=== PATIENT | female | born 1975 | race Caucasian/White ===

== ENCOUNTER 2024-02-12 12:11 | Emergency (ER) | payer BC ==
[2024-02-12] MEDS: metroNIDAZOLE 500 MG Tab PO ONE (13:10)
[2024-02-12] MEDS: Amoxicillin 500 MG Cap PO ONE (13:11)
[2024-02-12] MEDS: Take Home: metroNIDAZOLE 500 MG Tab, 6 Tab Pack PO ONE (13:13)
[2024-02-12] MEDS: Take Home: Amoxicillin 500 MG, 6 Cap Pack PO ONE (13:13)
== END 2024-02-12 13:30 | disposition home or self-care (01) ==
LOC: LL.ED 12:11
DX: S02.5XXB Fracture of tooth (traumatic), initial encounter for open fracture (principal); K04.7 Periapical abscess without sinus; Z79.899 Other long term (current) drug therapy; X58.XXXA Exposure to other specified factors, initial encounter
CPT/HCPCS: 99282; A9270

== ENCOUNTER 2024-06-27 18:06 | Emergency (ER) | payer BC ==
[2024-06-27] MEDS: Ondansetron 4 MG/2 ML SDV IVPUSH ONE (18:17)
[2024-06-27] MEDS: Morphine 2 MG/ML SYRINGE IVPUSH ONE ×2 (18:21→18:29)
[2024-06-27] MEDS: Morphine 2 MG/ML SYRINGE ONE (18:22)
[2024-06-27] MEDS: Ondansetron 4 MG/2 ML SDV ONE (18:22)
[2024-06-27 18:26] LABS: BASOPHILS ABSOLUTE AUTO 0.02 K/uL (0.00-0.20); BASOPHILS PERCENT AUTO 0.1 % (0.0-2.0); EOSINOPHILS ABSOLUTE AUTO 0.03 K/uL (0.00-0.50); EOSINOPHILS PERCENT AUTO 0.2 % (0.0-5.0); HEMATOCRIT 37.5 % (34.0-46.0); HEMOGLOBIN 11.5 g/dL (11.7-15.5); IMMATURE GRAN ABSOLUTE AUTO 0.03 10^3/uL (0.00-0.50); IMMATURE GRAN PERCENT AUTO 0.2 % (0.0-5.0); LYMPHOCYTES ABSOLUTE AUTO 1.61 K/uL (0.50-3.50); LYMPHOCYTES PERCENT AUTO 9.7 % (10.0-50.0); MEAN CORPUSCULAR HEMOGLOBIN 20.9 pg (28.2-33.3); MEAN CORPUSCULAR HGB CONC 30.7 g/dL (31.7-36.0); MEAN CORPUSCULAR VOLUME 68.2 fL (84.0-98.0); MONOCYTES ABSOLUTE AUTO 0.89 K/uL (0.00-1.00); MONOCYTES PERCENT AUTO 5.3 % (2.0-14.0); NEUTROPHILS ABSOLUTE AUTO 14.09 K/uL (1.40-7.00); NEUTROPHILS PERCENT AUTO 84.5 % (45.0-80.0); PLATELET COUNT,PLT 585 K/uL (150-350); RED CELL DISTRIBUTION WIDTH 19.6 % (11.2-14.1); WHITE BLOOD CELL COUNT,WBC 16.7 K/uL (4.0-10.2)
[2024-06-27] MEDS ORDERED: Naloxone 0.4 MG/ML SDV IVPUSH PRN (18:28)
[2024-06-27 18:41] LABS: ALANINE AMINOTRANSFERASE,ALT 157 U/L (12-78); ALBUMIN 3.5 g/dL (3.4-5.0); ALKALINE PHOSPHATASE 237 IU/L (46-116); AMYLASE 23 U/L (25-115); ANION GAP 9.8 meq/L (7-15); ASPARTATE AMNIOTRANSFERASE,AST 131 U/L (15-37); BILIRUBIN TOTAL 0.5 mg/dL (0.2-1.0); BLOOD UREA NITROGEN,BUN 7 mg/dL (7-18); CALCIUM 9.5 mg/dL (8.5-10.1); CARBON DIOXIDE,CO2 27.2 mmol/L (21.0-32.0); CHLORIDE,CL 99 mmol/L (98-107); CREATININE 0.63 mg/dL (0.51-1.17); GLUCOSE RANDOM 143 mg/dL (70-99); PROTEIN TOTAL,TP 7.9 g/dL (6.4-8.2); SODIUM,NA 136 mmol/L (136-145)
[2024-06-27 18:42] LABS: ESTIMATED GFR 108 mL/min (>=60)
[2024-06-27] MEDS: Morphine 4 MG/ML Syringe IVPUSH ONE (18:46)
[2024-06-27] MEDS: Iopamidol 612 MG/ML 100 ML Bottle ONE (19:00)
[2024-06-27] MEDS: HYDROmorphone 0.5 MG/0.5 ML Syringe IVPUSH ONE (19:56)
== END 2024-06-27 20:20 ==
LOC: LL.ED 18:06
DX: K91.30 Postprocedural intestinal obstruction, unspecified as to partial versus complete (principal); Z90.49 Acquired absence of other specified parts of digestive tract; Z79.899 Other long term (current) drug therapy
CPT/HCPCS: 36415; 74177; 80053; 82150; 83605; 83735; 85025; 96374; 96375; 99285-25; J1171; J2270; J2405; Q9967